=== PATIENT | female | born 1935 | race Caucasian/White ===

== ENCOUNTER 2020-11-10 10:56 | Emergency (ER) | payer MEDICARE ==
[~2020-11-10] VITALS: Ht 154.9 cm; Wt 77.1 kg
[2020-11-10 10:56] VITALS: BP_SYST 143
--- NOTE | 2020-11-10 10:56 | NUR ---
BROUGHT BACK TO BED #4 VIA WHEELCHAR, PLACED IN BED #4 AND TRIAGED. DAUGHTER AT BEDSIDE FOR EVALUATION. REPORT GIVEN TO LONI. DR NAVA CALLED TO BEDSIDE FOR EVALUATION DUE TO BRADYCARDIA
--- NOTE | 2020-11-10 11:00 | NUR ---
PATIENT PLACED INTO GOWN MONITOR ATTACHED
--- NOTE | 2020-11-10 11:05 | NUR ---
BRADYCARDIA: PATIENT ZACK ON MONITOR, MD AT SIDE
--- NOTE | 2020-11-10 11:06 | NUR ---
First EKG Obtained MD to read
[2020-11-10] MEDS ORDERED: ATROPINE SULFATE 1 MG/10 ML SYRINGE IVP ONE ×4 (11:08→11:15)
--- NOTE | 2020-11-10 11:10 | NUR ---
ATROPINE GIVEN IVP PER MD ORDER
--- NOTE | 2020-11-10 11:15 | NUR ---
20G STARTED TO LEFT AC AND LEFT HAND
--- NOTE | 2020-11-10 11:18 | NUR ---
2nd EKG obtained MD to read.
[2020-11-10] MEDS ORDERED: DOPamine PREMIX 250 ML IV ONE (11:30)
--- NOTE | 2020-11-10 11:30 | NUR ---
2ND DOSE ATROPINE GIVEN PER MD ORDER
[2020-11-10 11:51] LABS: BASOPHILS % (AUTO) 0.4 % (0.0-2.0); EOSINOPHILS # (AUTO) 0.1 K/uL (0.0-0.4); EOSINOPHILS % (AUTO) 1.5 % (0.0-4.0); HEMATOCRIT 42.9 % (36-48); LYMPHOCYTES # (AUTO) 1.4 K/uL (1.0-5.5); LYMPHOCYTES % (AUTO) 17.7 % (20.5-51.5); MEAN CORPUSCULAR HEMOGLOBIN 30 pg (27-31); MEAN CORPUSCULAR HGB CONC 33 % (32-36); MEAN CORPUSCULAR VOLUME 91 fL (79.0-98.0); MONOCYTES # (AUTO) 0.6 K/uL (0.0-1.0); MONOCYTES % (AUTO) 7.1 % (1.7-9.3); NEUTROPHILS # (AUTO) 5.7 K/uL (1.8-7.7); NEUTROPHILS % (AUTO) 73.3 % (40.0-70.0); PLATELET COUNT (AUTO) 162 K/uL (130-430); RED CELL DISTRIBUTION WIDTH 15.7 % (9.0-15.0); WHITE BLOOD COUNT (AUTO) 7.8 K/uL (4.8-10.8)
--- NOTE | 2020-11-10 11:56 | NUR ---
Dr. Henry, [place] EPR[facility] Doc, called back to speak to Dr. Buckley regarding pt status.
--- NOTE | 2020-11-10 11:59 | NUR ---
DOPAMINE DRIP STARTED PER ORDER AND PROTOCOL
--- NOTE | 2020-11-10 12:00 | NUR ---
MEDICATION LIST GIVEN FROM DAUGHTER
--- NOTE | 2020-11-10 12:01 | NUR ---
RX LIST FOLLOWS PER DAUGHTER WARFARIN, CARVIDELOL, LOVASTATIN, GABAPENTIN, ATROVENT, LISINOPRIL, NORCO
--- NOTE | 2020-11-10 12:02 | NUR ---
LAB AT BEDSIDE PERFORMING LAB DRAW
--- NOTE | 2020-11-10 12:03 | NUR ---
DAUGHTER AT BEDSIDE
[2020-11-10 12:04] LABS: ANION GAP 11 (5-15); CALCIUM 7.7 mg/dL (8.4-11.0); CHLORIDE 105 mmol/L (98-107); CREATININE 1.06 mg/dL (0.55-1.30); GLUCOSE 132 mg/dL (70-99); POTASSIUM 4.6 mmol/L (3.5-5.1); SODIUM SERUM 140 mmol/L (136-145); UREA NITROGEN, BLOOD 22 mg/dL (8-21)
[2020-11-10 12:08] LABS: INR 2.4 (0.8-1.2)
[2020-11-10 12:13] LABS: ALANINE AMINOTRANSFERASE 30 U/L (12-78); ALBUMIN 3.2 g/dL (3.4-4.8); ASPARTATE AMINOTRANSFERASE 39 U/L (10-37); TOTAL BILIRUBIN 0.5 mg/dL (0.0-1.0)
--- NOTE | 2020-11-10 12:23 | NUR ---
RT AT BEDSIDE ASSISTING WITH EKG READING
--- NOTE | 2020-11-10 12:25 | NUR ---
Dr. Skinner paged back to speak to Dr. Buckley regarding pt status
[2020-11-10] MEDS ORDERED: GLUCAGON,HUMAN RECOMBINANT 1 MG VIAL IVP ONE (12:30)
--- NOTE | 2020-11-10 12:45 | NUR ---
TITRATING DOPAMINE PER ORDER
--- NOTE | 2020-11-10 13:00 | NUR ---
DR NAVA SPEAKING WITH DR HART AT THIS TIME
--- NOTE | 2020-11-10 13:10 | NUR ---
education provided to daughter at bedside, all questions answered.
--- NOTE | 2020-11-10 13:13 | NUR ---
Dr. Henry called back to speak to Dr. Buckley regarding pt status after speaking with cardiologists
--- NOTE | 2020-11-10 13:15 | NUR ---
MD at bedside discussing plan of care with patient.
--- NOTE | 2020-11-10 13:16 | NUR ---
Transfer: Patient to be transfered to [facility]. spoke with Gary French Pastry Cook and trasnfer is being obtained.
--- NOTE | 2020-11-10 13:30 | NUR ---
BRADYCARDIA PATIENT REMAINS ZACK ON MONITOR HR 41, A-FLUTTER WITH BLOCK NOTED, MD AWARE.
--- NOTE | 2020-11-10 13:32 | NUR ---
Covid Swab: Collected and sent to lab.
--- NOTE | 2020-11-10 13:44 | NUR ---
Dr. Buckley on the phone with the hot plate plywood press laborer at [facility].
--- NOTE | 2020-11-10 13:51 | NUR ---
Spoke with Sarah at [facility] at [facility] [phone], report given to primary nurse, [facility] is awaiting trasnfer to [facility]. [facility] ambulance enroute.
--- NOTE | 2020-11-10 13:53 | NUR ---
TRANSFER NOTE [facility] [address], RAKAN spoke to Jody Smith fuse assembler
--- NOTE | 2020-11-10 13:55 | NUR ---
RN ROUNDS: PATIENT REMAINS AWAKE, C/C " I FEEL TIRED" PATIENT REMAINS ZACK ON MONITOR. DAUGHTER AT BEDSIDE. BED LOW AND LOCKED FOR SAFETY.
--- NOTE | 2020-11-10 14:22 | NUR ---
Dion Perea EPRP RN, called back to give the ETA 1515 CODE 3. States called 6 different vendors and 1515 was fastest eta. RN and MD notified.
--- NOTE | 2020-11-10 14:24 | NUR ---
Attempted to call [facility] Safety Compliance Specialist to update RAKAN Smith or RAKAN Russell on ETA. No answer will call back
--- NOTE | 2020-11-10 14:25 | NUR ---
Family has been updated on ETA to [facility], all questions answered at this time.
--- NOTE | 2020-11-10 14:27 | NUR ---
UPDATED JAIME SMITH [employer] TRUCK DRIVER ON ETA. REQUESTED CALL WHEN PT LEAVES FACILITY.
--- NOTE | 2020-11-10 14:30 | NUR ---
LEE CATHER PLACED: PLACED 16F LEE CATHETER USING STERILE TECHNIQUQ, PATIENT TOLERATED WELL. CLEAR YELLOW URINE NOTED IN BAG.
[2020-11-10 15:08] VITALS: BP_SYST 136
--- NOTE | 2020-11-10 15:09 | NUR ---
Patient to be transferred to [facility]. Is being transferred due to higher level of care. Receiving facility has accepting physician and available space. ER physician has signed transfer form. Patient or responsible libertarian has agreed to transfer and signed form. Patient belongings inventoried and will be sent with patient. Copy of nursing notes, lab reports, EKG, Physicians Orders and X-rays to be sent with patient. Report called to VERONICA. at receiving facility. Receiving physician is MUNA. [facility]. ETA is 1515.
--- NOTE | 2020-11-10 15:22 | NUR ---
TRANSPORT HERE TO TAKE PT CODE 3 TO [facility] FOR HIGHER LEVEL OF CARE. PACKET SENT WITH PT. REPORT CALLED TO LUPILLO.
[2020-11-10 16:28] LABS: BILIRUBIN,URINE NEGATIVE (NEGATIVE); CLARITY/URINE CLEAR (CLEAR); GLUCOSE,URINE NEGATIVE (NEGATIVE); KETONES,URINE NEGATIVE (NEGATIVE); LEUKOCYTE ESTERASE ,URINE NEGATIVE (NEGATIVE); NITRITE, URINE NEGATIVE (NEGATIVE); PH,URINE 5.5 (5.0-8.0); PROTEIN URINE NEGATIVE (NEGATIVE); UROBILINOGEN,URINE 0.2 (0.2-1.0)
[2020-11-10 17:02] LABS: COLOR,URINE YELLOW (YELLOW)
[2020-11-10 17:03] LABS: BLOOD, URINE NEGATIVE (NEGATIVE)
== END 2020-11-10 15:09 ==
LOC: SED 10:56
DX: I44.2 Atrioventricular block, complete (principal); I50.20 Unspecified systolic (congestive) heart failure; I48.20 Chronic atrial fibrillation, unspecified; Z79.01 Long term (current) use of anticoagulants; I10 Essential (primary) hypertension; Z20.822 Contact with and (suspected) exposure to COVID-19
CPT/HCPCS: 96374; 36415; 71045; 80053; 81003; 82550; 83880; 84484; 85025; 85610; 85730; 87426; 93005; 96375; 99291; J0461; J1265; J1610